=== PATIENT | male | born 1945 | race Caucasian/White ===

== ENCOUNTER 2016-09-27 22:19 | Emergency (ER) | payer MEDICARE, BC ==
[2016-09-27 22:40] VITALS: BP 149/79
[2016-09-27] MEDS ORDERED: Sodium Chloride 0.9% 1,000 ML IV SCH (23:00)
--- NOTE | 2016-09-27 23:50 | EDM.PDOC ---
ED HPI GENERAL MEDICAL PROBLEM - General Chief Complaint: Lower Extremity Injury/Pain Stated Complaint: LT LEG PAIN/SWELLING Time Seen by Provider: 09/27/16 22:26 Source of Information: Reports: Patient History Limitations: Reports: No limitations - History of Present Illness INITIAL COMMENTS - FREE TEXT/NARRATIVE: History of present illness: [This 71-year-old male presents with left calf pain and swelling developing over the last 12 hours. He has no history of DVTs or blood clots. He's been active working in his yard cleaning raking etc. and has not noticed any pain until this afternoon when he was at a gathering of friends when his left calf began swelling and creating some discomfort and pain which progressed to the point where he decided to come to the ER. he is on Plavix and aspirin for other things. He denies any chest pain or shortness of breath. He denies any thigh pain or swelling or discomfort.] Review of systems: As per history of present illness and below otherwise all systems reviewed and negative. Past medical history: As per history of present illness and as reviewed below otherwise noncontributory. Surgical history: As per history of present illness and as reviewed below otherwise noncontributory. Social history: No reported history of drug or alcohol abuse. Family history: As per history of present illness and as reviewed below otherwise noncontributory. Physical exam: HEENT: Atraumatic, normocephalic, pupils reactive, negative for conjunctival pallor or scleral icterus, mucous membranes moist, throat clear, neck supple, nontender, trachea midline. Lungs: Clear to auscultation, breath sounds equal bilaterally, chest nontender. Heart: S1S2, regular, negative for clicks, rubs, or JVD. Abdomen: Soft, nondistended, nontender. Negative for masses or hepatosplenomegaly. Negative for costovertebral tenderness. Pelvis: Stable nontender. Genitourinary: Deferred. Rectal: Deferred. Extremities: His left calf is swollen and tense and tender and there is a bruise present at the proximal inner calf. He does not recall trauma to that area. His foot is pink and warm with pulses present. Neuro: Awake, alert, oriented. Cranial nerves II through XII unremarkable. Cerebellum unremarkable. Motor and sensory unremarkable throughout. Exam nonfocal. Diagnostics: [CBC complete metabolic panel d-dimer were done. D-dimer was negative. Ultrasound of the left lower extremity was done duplex study and revealed a blood clot inferior to his popliteal fossa. No DVT was identified.] Therapeutics: [Subcutaneous hematoma of the left upper calf.] Impression: [He is discharged with recommendations for elevation and hot packs and to continue with his Plavix and aspirin. The academic affairs assistant noted that the clot was pressing on his popliteal vein so he still at risk for development of a DVT due to this finding and we discussed this with him so if he is swelling and pain are increasing in spite of our treatment he will need to return for reevaluation and another ultrasound to see for sure that he is not developing a DVT.] Plan: [] Definitive disposition and diagnosis as appropriate pending reevaluation and review of above. Left Leg Pain Score (Numeric/FACES): 2 - Related Data Allergies Allergy/AdvReac Type Severity Reaction Status Date / Time cephalexin [Cephalexin] Allergy Mild Rash Verified 03/06/16 08:52 Penicillins Allergy Mild Rash Verified 03/06/16 08:52 Home Meds: Home Meds Aspirin 81 mg PO DAILY 06/03/13 [History] Sildenafil [Viagra] 25 mg PO ASDIRECTED PRN 06/03/13 [History] Clopidogrel [Plavix] 75 mg PO DAILY 06/05/13 [History] Ibuprofen 1 - 2 tab PO Q4H PRN 02/25/16 [History] Isosorbide Mononitrate [Imdur] 30 mg PO DAILY 02/25/16 [History] Lisinopril 5 mg PO DAILY 02/25/16 [History] Nitroglycerin [Nitrostat] 1 tab SL ASDIRECTED PRN 02/25/16 [History] atorvaSTATin [Lipitor] 40 mg PO DAILY 02/25/16 [History] Tamsulosin [Flomax] 0.4 mg PO DAILY 09/27/16 [History] Past Medical History Cardiovascular History: Reports: [place] Oncologic (Cancer) History: Reports: Basal cell carcinoma, Squamous cell carcinoma - Past Surgical History Cardiovascular Surgical History: Reports: Carotid endarterectomy GI Surgical History: Reports: Cholecystectomy Male Surgical History: Reports: Other (see below) Other Male Surgeries/Procedures: enlarged prostate Social & Family History - Tobacco Use Smoking Status *Q: Never Smoker - Caffeine Use Caffeine Use: Reports: Coffee - Alcohol Use Days Per Week of Alcohol Use: 5 Number of Drinks Per Day: 3 Total Drinks Per Week: 15 - Recreational Drug Use Recreational Drug Use: No Review of Systems - Review of Systems Review Of Systems: See Below Trauma Exam - Physical Exam Exam: See Below Course - Vital Signs Last Recorded V/S: Last Vital Signs Temp 35.9 C 09/27/16 22:38 Pulse 71 09/27/16 22:38 Resp 18 09/27/16 22:38 BP 149/79 H 09/27/16 22:38 Pulse Ox 95 09/27/16 22:38 - Orders/Labs/Meds Orders: Active Orders 24 hr Category Date Time Status VL Duplex Lwr Ext Veins Ltd Lt [US] Stat Exams 09/27/16 22:28 Ordered Sodium Chloride 0.9% @ 150 MLS/HR (1000ml) Med 09/27/16 23:00 Ordered Sodium Chloride 0.9% [Normal Saline] 1,000 ml IV ASDIRECTED Medication Orders Sodium Chloride (Normal Saline) 1,000 mls @ 150 mls/hr IV ASDIRECTED SANDOR Last Admin: 09/27/16 23:08 Dose: 150 mls/hr Labs: Laboratory Tests 09/27/16 09/27/16 09/27/16 Range/Units 22:40 22:40 22:40 WBC 7.0 (4.5-11.0) K/uL RBC 4.06 L (4.30-5.90) M/uL Hgb 13.3 (12.0-15.0) g/dL Hct 38.0 L (40.0-54.0) % MCV 94 (80-98) fL MCH 33 H (27-31) pg MCHC 35 (32-36) % Plt Count 200 (150-400) K/uL Neut % (Auto) 55 (36-66) % Lymph % (Auto) 32 (24-44) % [place] % (Auto) 10 H (2-6) % Eos % (Auto) 3 (2-4) % Baso % (Auto) 0 (0-1) % PT 10.9 (9.5-12.0) sec INR 1.03 (0.80-1.20) D-Dimer, Quantitative 120 (0.0-400.0) ng/mL Sodium (140-148) mmol/L Potassium (3.6-5.2) mmol/L Chloride (100-108) mmol/L Carbon Dioxide (21-32) mmol/L Anion Gap (5.0-14.0) mmol/L BUN (7-18) mg/dL Creatinine (0.8-1.3) mg/dL Est Cr Clr Drug Dosing mL/min Estimated GFR (MDRD) (>60) Glucose (74-106) mg/dL Calcium (8.5-10.1) mg/dL Total Bilirubin (0.2-1.0) mg/dL AST (15-37) U/L ALT (12-78) U/L Alkaline Phosphatase (46-116) U/L Total Protein (6.4-8.2) g/dL Albumin (3.4-5.0) g/dL Globulin (2.3-3.5) g/dL Albumin/Globulin Ratio (1.2-2.2) /03/06 Range/Units 22:40 WBC (4.5-11.0) K/uL RBC (4.30-5.90) M/uL Hgb (12.0-15.0) g/dL Hct (40.0-54.0) % MCV (80-98) fL MCH (27-31) pg MCHC (32-36) % Plt Count (150-400) K/uL Neut % (Auto) (36-66) % Lymph % (Auto) (24-44) % [place] % (Auto) (2-6) % Eos % (Auto) (2-4) % Baso % (Auto) (0-1) % PT (9.5-12.0) sec INR (0.80-1.20) D-Dimer, Quantitative (0.0-400.0) ng/mL Sodium 138 L (140-148) mmol/L Potassium 3.4 L (3.6-5.2) mmol/L Chloride 104 (100-108) mmol/L Carbon Dioxide 25 (21-32) mmol/L Anion Gap 12.4 (5.0-14.0) mmol/L BUN 18 (7-18) mg/dL Creatinine 1.1 (0.8-1.3) mg/dL Est Cr Clr Drug Dosing 58.42 mL/min Estimated GFR (MDRD) > 60 (>60) Glucose 102 (74-106) mg/dL Calcium 8.1 L (8.5-10.1) mg/dL Total Bilirubin 0.7 (0.2-1.0) mg/dL AST 24 (15-37) U/L ALT 34 (12-78) U/L Alkaline Phosphatase 88 (46-116) U/L Total Protein 7.0 (6.4-8.2) g/dL Albumin 3.8 (3.4-5.0) g/dL Globulin 3.2 (2.3-3.5) g/dL Albumin/Globulin Ratio 1.2 (1.2-2.2) Meds: Medications Generic Name Dose Route Start Last Admin Trade Name Freq PRN Reason Stop Dose Admin Sodium Chloride 1,000 mls @ 150 mls/hr 09/27/16 23:00 09/27/16 23:08 Normal Saline IV 150 mls/hr ASDIRECTED SANDOR Administration Departure - Departure Time of Disposition: 23:48 Disposition: Home, Self-Care 01 Condition: good Clinical Impression: Pain of left calf - Discharge Information Forms: ED Department Discharge Additional Instructions: As we discussed we would recommend hot packs to her calf elevation and followup with Dr. Douglas. If your pain and swelling are worsening he will need to come back to the ER for another evaluation. You can continue with your current medications. The pain and swelling and blood clot that she would develop should resolve over the next few weeks. You can return to your usual activities as the pain and swelling subside. - My Orders Last 24 Hours: My Active Orders 09/27/16 22:28 VL Duplex Lwr Ext Veins Ltd Lt [US] Stat 09/27/16 23:00 Sodium Chloride 0.9% @ 150 MLS/HR (1000ml) Sodium Chloride 0.9% [Normal Saline] 1,000 ml IV ASDIRECTED - Assessment/Plan Last 24 Hours: My Active Orders 09/27/16 22:28 VL Duplex Lwr Ext Veins Ltd Lt [US] Stat 09/27/16 23:00 Sodium Chloride 0.9% @ 150 MLS/HR (1000ml) Sodium Chloride 0.9% [Normal Saline] 1,000 ml IV ASDIRECTED
== END 2016-09-28 00:09 | disposition home or self-care (01) ==
LOC: JP.ED 22:19
DX: S80.12XA Contusion of left lower leg, initial encounter (principal); I25.2 Old myocardial infarction; Z90.49 Acquired absence of other specified parts of digestive tract; Z88.0 Allergy status to penicillin; Z88.1 Allergy status to other antibiotic agents; Z79.82 Long term (current) use of aspirin; Z79.899 Other long term (current) drug therapy; Y93.H2 Activity, gardening and landscaping; Y92.096 Garden or yard of other non-institutional residence as the place of occurrence of the external cause; Y99.0 Civilian activity done for income or pay
CPT/HCPCS: 36415; 80053; 85025; 85379; 85610; 93971; 96360; 99284; J7040; 99282

== ENCOUNTER 2021-09-10 13:35 | Emergency (ER) | payer MEDICARE, BC ==
[2021-09-10] MEDS ORDERED: Sodium Chloride 0.9% 10 ML Syringe FLUSH PRN (13:40)
[2021-09-10] MEDS ORDERED: Morphine 2 MG/ML SYRINGE IVPUSH ONE (13:48)
[2021-09-10 20:56] VITALS: BP 108/56; PULSE 66
== END 2021-09-10 20:57 | disposition home or self-care (01) ==
LOC: JP.ED 13:35
DX: R06.02 Shortness of breath (principal); I25.10 Atherosclerotic heart disease of native coronary artery without angina pectoris; E78.5 Hyperlipidemia, unspecified; I10 Essential (primary) hypertension; Z88.0 Allergy status to penicillin; Z88.1 Allergy status to other antibiotic agents; Z79.82 Long term (current) use of aspirin; Z79.899 Other long term (current) drug therapy; Z95.1 Presence of aortocoronary bypass graft
CPT/HCPCS: 36415; 71045; 71045-26; 80048; 83880; 84484; 85025; 85610; 85730; 93005; 93010; 96374; 99283; 99285-25; J2270